=== PATIENT | female | born 1950 | race Caucasian/White ===

== ENCOUNTER → 2017-05-14 15:42 | Outpatient (CLI) | payer MEDICARE, BC ==
[2015-12-14 12:41] VITALS: BMI 26.2
[~2017-05-14 15:42] MED LIST: ALEVE220 MG PO; ASCORBIC ACID500 MG PO; CO Q-1030 MG PO; FISH OIL 1,0001 CA1 PO; HYDROCODON-ACE1 EAC7 PO; MIRALAX17 GM PO; MORPHINE IMMEDI15 MG PO; MS CONTIN60 MG PO; NEUPOGEN300 MCG/ML SC; PRINIVIL20 MG PO; PROBIOTIC1 EAC1 PO; REGLAN10 MG PO; VITAMIN D3400 UNI1 PO; XANAX0.5 MG PO; ZOFRAN8 MG PO; [UNRECOGNIZED DRUG - OTHER]; [UNRECOGNIZED DRUG - REMARK]
[2017-05-14 19:36] LABS: MCH 32.9 pg (26.0-34.0); MCHC 32.3 g/dL (31.0-37.0); MEAN PLATELET VOLUME 12.3 fL (7.4-10.4); RDW 19.4 % (11.5-14.5)
[2017-05-14 19:48] LABS: HEMATOCRIT 15.5 % (36.0-48.0); PLATELET COUNT 22 10x3/uL (130-400); RBC 1.52 10x6/uL (4.00-5.40); WBC 0.2 10x3/uL (4.8-10.8)
[2017-05-14 20:13] LABS: ALBUMIN 2.7 g/dL (3.4-5.0); ALKALINE PHOSPHATASE 116 U/L (46-116); ALT (SGPT) 47 U/L (10-68); CALC OSMOLALITY 259 mosm/kg (275-300); CALCIUM 7.3 mg/dL (8.5-10.1); CARBON DIOXIDE 24.5 mmol/L (21.0-32.0); CHLORIDE - SERUM 95 mmol/L (98-107); CREATININE - SERUM 0.5 mg/dL (0.6-1.3); GLUCOSE 137 mg/dL (74-106); POTASSIUM - SERUM 3.9 mmol/L (3.5-5.1); SODIUM 129 mmol/L (136-145); UREA NITROGEN 11 mg/dL (7-18); eGFR NON AFRICAN AMERICAN > 90 mL/min (90-120)
[2017-05-14 21:32] LABS: LYMPHOCYTES 47 % (15-50); NEUTROPHILS 53 % (40-80); PLATELET ESTIMATE DECREASED
== END | disposition home or self-care (01) ==
LOC: D.LABREF 15:42
PROVIDERS: Internal Medicine Hematology & Oncology
DX: C18.7 Malignant neoplasm of sigmoid colon (principal)

== ENCOUNTER 2017-05-15 00:50 | Inpatient (IN) | payer MEDICARE, BC ==
[2017-05-15] VITALS (12 sets, daily range): BP systolic 114–147; BP diastolic 67–82; Ht 162.6 cm; Wt 57.0 kg
[~2017-05-15] VITALS: Ht 162.6 cm; Wt 57.0 kg
[~2017-05-15 00:50] MED LIST changes: -ALEVE220 MG PO; -MIRALAX17 GM PO; -MORPHINE IMMEDI15 MG PO; -MS CONTIN60 MG PO; -NEUPOGEN300 MCG/ML SC; -REGLAN10 MG PO; -XANAX0.5 MG PO; -ZOFRAN8 MG PO
[2017-05-15] MEDS ORDERED: ZOFRAN8 MG PO (03:37)
[2017-05-15] MEDS ORDERED: PRINIVIL20 MG PO (03:38)
[2017-05-15] MEDS ORDERED: REGLAN10 MG PO (03:38)
[2017-05-15] MEDS ORDERED: MS CONTIN60 MG PO (03:39)
[2017-05-15] MEDS ORDERED: MORPHINE IMMEDI15 MG PO (03:39)
[2017-05-15] MEDS ORDERED: MIRALAX17 GM PO (03:40)
[2017-05-15] MEDS ORDERED: XANAX0.5 MG PO (03:41)
[2017-05-15] MEDS ORDERED: NEUPOGEN300 MCG/ML SC (03:42)
[2017-05-15] MEDS ORDERED: ALEVE220 MG PO (03:42)
[2017-05-15 09:00] LABS: INR 1.49 (0.85-1.17); PROTIME 17.5 SECONDS (11.6-15.0)
[2017-05-15 10:17] LABS: BASOPHILS 0 % (0-2); EOSINOPHILS 0 % (0-7); LYMPHOCYTES 23.3 % (15-50); MCH 32.3 pg (26.0-34.0); MCHC 33.7 g/dL (31.0-37.0); MEAN PLATELET VOLUME 9.6 fL (7.4-10.4); MONOCYTES 13.3 % (2-11); NEUTROPHILS 63.4 % (40-80); RDW 19.1 % (11.5-14.5)
[2017-05-15 10:32] LABS: HEMATOCRIT 25.8 % (36.0-48.0); HEMOGLOBIN 8.7 g/dL (12-16); MCV 95.9 fL (80.0-100.0); PLATELET COUNT 77 10x3/uL (130-400); RBC 2.69 10x6/uL (4.00-5.40); WBC 0.3 10x3/uL (4.8-10.8)
[2017-05-15 10:40] LABS: ALKALINE PHOSPHATASE 116 U/L (46-116); ALT (SGPT) 49 U/L (10-68); BILIRUBIN - TOTAL 3.25 mg/dL (0.2-1.3); CALC OSMOLALITY 267 mosm/kg (275-300); CARBON DIOXIDE 23.4 mmol/L (21.0-32.0); CHLORIDE - SERUM 99 mmol/L (98-107); CREATININE - SERUM 0.5 mg/dL (0.6-1.3); GLUCOSE 136 mg/dL (74-106); PROTEIN - SERUM 6.9 g/dL (6.4-8.2); SODIUM 132 mmol/L (136-145); UREA NITROGEN 14 mg/dL (7-18); eGFR NON AFRICAN AMERICAN > 90 mL/min (90-120)
[2017-05-16 03:00] VITALS: BP 117/69
[2017-05-16 04:03] LABS: BASOPHILS 0 % (0-2); EOSINOPHILS 0 % (0-7); HEMOGLOBIN 7.6 g/dL (12-16); LYMPHOCYTES 40.5 % (15-50); MCH 33.2 pg (26.0-34.0); MCHC 34.5 g/dL (31.0-37.0); MCV 96.1 fL (80.0-100.0); MEAN PLATELET VOLUME 9.1 fL (7.4-10.4); MONOCYTES 11.9 % (2-11); NEUTROPHILS 47.6 % (40-80); PLATELET COUNT 66 10x3/uL (130-400); RBC 2.29 10x6/uL (4.00-5.40); RDW 19.9 % (11.5-14.5)
[2017-05-16 04:34] LABS: ALKALINE PHOSPHATASE 87 U/L (46-116); ALT (SGPT) 37 U/L (10-68); BILIRUBIN - TOTAL 1.79 mg/dL (0.2-1.3); CALCIUM 7.5 mg/dL (8.5-10.1); CARBON DIOXIDE 24.6 mmol/L (21.0-32.0); CHLORIDE - SERUM 101 mmol/L (98-107); CREATININE - SERUM 0.5 mg/dL (0.6-1.3); GLUCOSE 131 mg/dL (74-106); PROTEIN - SERUM 5.5 g/dL (6.4-8.2); SODIUM 134 mmol/L (136-145); eGFR NON AFRICAN AMERICAN > 90 mL/min (90-120)
[2017-05-16 04:51] LABS: WBC 0.4 10x3/uL (4.8-10.8)
[2017-05-16 04:53] LABS: ALBUMIN 2.2 g/dL (3.4-5.0); CALC OSMOLALITY 268 mosm/kg (275-300); UREA NITROGEN 10 mg/dL (7-18)
[2017-05-16 07:00] VITALS: BP 115/81
[2017-05-16 11:00] VITALS: BP 127/79
[2017-05-16 15:00] VITALS: BP 127/76
[2017-05-16 19:00] VITALS: BP 133/87
[2017-05-16 22:19] VITALS: BP 116/61
[2017-05-17 04:40] VITALS: BP 137/61
[2017-05-17 04:45] LABS: BASOPHILS 0 % (0-2); EOSINOPHILS 1.3 % (0-7); HEMATOCRIT 25.2 % (36.0-48.0); HEMOGLOBIN 8.5 g/dL (12-16); LYMPHOCYTES 29.3 % (15-50); MCH 31.5 pg (26.0-34.0); MCHC 33.7 g/dL (31.0-37.0); MEAN PLATELET VOLUME 9.1 fL (7.4-10.4); MONOCYTES 17.3 % (2-11); NEUTROPHILS 44.1 % (40-80); RDW 20.8 % (11.5-14.5)
[2017-05-17 05:09] LABS: MCV 93.3 fL (80.0-100.0)
[2017-05-17 05:10] LABS: PLATELET COUNT 49 10x3/uL (130-400); WBC 0.8 10x3/uL (4.8-10.8)
[2017-05-17 05:16] LABS: ALBUMIN 2.1 g/dL (3.4-5.0); ALKALINE PHOSPHATASE 74 U/L (46-116); ALT (SGPT) 30 U/L (10-68); BILIRUBIN - TOTAL 1.46 mg/dL (0.2-1.3); CALC OSMOLALITY 268 mosm/kg (275-300); CARBON DIOXIDE 23.5 mmol/L (21.0-32.0); CHLORIDE - SERUM 105 mmol/L (98-107); CREATININE - SERUM 0.5 mg/dL (0.6-1.3); GLUCOSE 108 mg/dL (74-106); POTASSIUM - SERUM 4.1 mmol/L (3.5-5.1); PROTEIN - SERUM 5.1 g/dL (6.4-8.2); SODIUM 135 mmol/L (136-145); UREA NITROGEN 8 mg/dL (7-18); eGFR NON AFRICAN AMERICAN > 90 mL/min (90-120)
[2017-05-17 09:58] VITALS: BP 117/67
[2017-05-17 12:49] VITALS: BP 119/70
[2017-05-17 15:57] VITALS: BP 133/74
[2017-05-17 21:58] VITALS: BP 155/84
[2017-05-18 00:11] VITALS: BP 137/71
[2017-05-18 04:59] LABS: BASOPHILS 0 % (0-2); EOSINOPHILS 0 % (0-7); HEMATOCRIT 27.1 % (36.0-48.0); HEMOGLOBIN 9.1 g/dL (12-16); IMMATURE GRANULOCYTES 10.5 % (0-5); LYMPHOCYTES 23.8 % (15-50); MCH 31.7 pg (26.0-34.0); MCHC 33.6 g/dL (31.0-37.0); MCV 94.4 fL (80.0-100.0); MEAN PLATELET VOLUME 9.4 fL (7.4-10.4); MONOCYTES 15.4 % (2-11); NEUTROPHILS 50.3 % (40-80); RBC 2.87 10x6/uL (4.00-5.40); RDW 20.3 % (11.5-14.5)
[2017-05-18 05:04] LABS: PLATELET COUNT 45 10x3/uL (130-400); WBC 1.4 10x3/uL (4.8-10.8)
[2017-05-18 05:16] VITALS: BP 129/75
[2017-05-18 05:53] LABS: ALBUMIN 2.1 g/dL (3.4-5.0); ALKALINE PHOSPHATASE 71 U/L (46-116); ALT (SGPT) 24 U/L (10-68); CARBON DIOXIDE 25.3 mmol/L (21.0-32.0); CHLORIDE - SERUM 102 mmol/L (98-107); CREATININE - SERUM 0.4 mg/dL (0.6-1.3); GLUCOSE 99 mg/dL (74-106); PROTEIN - SERUM 4.6 g/dL (6.4-8.2); SODIUM 133 mmol/L (136-145); eGFR NON AFRICAN AMERICAN > 90 mL/min (90-120)
[2017-05-18 05:55] LABS: CALC OSMOLALITY 262 mosm/kg (275-300); POTASSIUM - SERUM 3.4 mmol/L (3.5-5.1); UREA NITROGEN 5 mg/dL (7-18)
[2017-05-18 05:58] LABS: CALCIUM 6.8 mg/dL (8.5-10.1)
[2017-05-18 08:39] VITALS: BP 122/76
[2017-05-18 13:14] VITALS: BP 101/74
[2017-05-18 16:48] VITALS: BP 135/78
[2017-05-18 21:35] VITALS: BP 154/83
[2017-05-19 00:45] VITALS: BP 144/77
[2017-05-19 04:54] VITALS: BP 150/76
[2017-05-19 06:29] LABS: BASOPHILS 0 % (0-2); EOSINOPHILS 0.3 % (0-7); HEMATOCRIT 26.1 % (36.0-48.0); HEMOGLOBIN 8.8 g/dL (12-16); IMMATURE GRANULOCYTES 1.6 % (0-5); LYMPHOCYTES 11.4 % (15-50); MCH 31.9 pg (26.0-34.0); MCHC 33.7 g/dL (31.0-37.0); MCV 94.6 fL (80.0-100.0); NEUTROPHILS 72.7 % (40-80); RBC 2.76 10x6/uL (4.00-5.40)
[2017-05-19 06:34] LABS: WBC 3.1 10x3/uL (4.8-10.8)
[2017-05-19 06:35] LABS: PLATELET COUNT 40 10x3/uL (130-400)
[2017-05-19 06:53] LABS: ALBUMIN 2.1 g/dL (3.4-5.0); ALKALINE PHOSPHATASE 68 U/L (46-116); ALT (SGPT) 21 U/L (10-68); BILIRUBIN - TOTAL 0.79 mg/dL (0.2-1.3); CALC OSMOLALITY 266 mosm/kg (275-300); CALCIUM 7.1 mg/dL (8.5-10.1); CARBON DIOXIDE 25.3 mmol/L (21.0-32.0); CHLORIDE - SERUM 103 mmol/L (98-107); CREATININE - SERUM 0.5 mg/dL (0.6-1.3); GLUCOSE 105 mg/dL (74-106); POTASSIUM - SERUM 3.1 mmol/L (3.5-5.1); PROTEIN - SERUM 5.2 g/dL (6.4-8.2); SODIUM 135 mmol/L (136-145); UREA NITROGEN 4 mg/dL (7-18); eGFR NON AFRICAN AMERICAN > 90 mL/min (90-120)
[2017-05-19 08:10] VITALS: BP 132/76
[2017-05-19 11:31] VITALS: BP 137/76
[2017-05-19 15:29] VITALS: BP 130/73
[2017-05-19 17:19] LABS: APPEARANCE CLEAR (CLEAR); BILIRUBIN NEGATIVE (NEGATIVE); COLOR YELLOW (YELLOW); GLUCOSE NEGATIVE (NEGATIVE); KETONE NEGATIVE (NEGATIVE); NITRITE NEGATIVE (NEGATIVE); PROTEIN NEGATIVE (NEGATIVE); SPECIFIC GRAVITY 1.005 (1.005-1.020); UROBILINOGEN NORMAL (NORMAL)
[2017-05-19 17:23] LABS: BACTERIA FEW /hpf (NONE SEEN); EPITHELIAL CELLS OCC /hpf (0-5); RED CELLS - URINE 0-5 /hpf (0-5); WHITE CELLS - URINE 0-5 /hpf (0-5)
[2017-05-19 20:00] VITALS: BP 148/84
[2017-05-20 01:49] VITALS: BP 138/75
[2017-05-20 04:46] VITALS: BP 134/90
[2017-05-20 08:13] LABS: BASOPHILS 0.2 % (0-2); EOSINOPHILS 0 % (0-7); HEMATOCRIT 25.8 % (36.0-48.0); HEMOGLOBIN 8.7 g/dL (12-16); IMMATURE GRANULOCYTES 2.6 % (0-5); LYMPHOCYTES 6.6 % (15-50); MCH 32.5 pg (26.0-34.0); MCHC 33.7 g/dL (31.0-37.0); MCV 96.3 fL (80.0-100.0); MEAN PLATELET VOLUME 10.5 fL (7.4-10.4); MONOCYTES 11.7 % (2-11); NEUTROPHILS 78.9 % (40-80); RBC 2.68 10x6/uL (4.00-5.40); RDW 20.2 % (11.5-14.5)
[2017-05-20 08:20] LABS: PLATELET COUNT 34 10x3/uL (130-400)
[2017-05-20 08:26] LABS: ALBUMIN 2.2 g/dL (3.4-5.0); ALKALINE PHOSPHATASE 73 U/L (46-116); BILIRUBIN - TOTAL 0.68 mg/dL (0.2-1.3); CALC OSMOLALITY 267 mosm/kg (275-300); CALCIUM 7.1 mg/dL (8.5-10.1); CARBON DIOXIDE 24.6 mmol/L (21.0-32.0); CHLORIDE - SERUM 104 mmol/L (98-107); CREATININE - SERUM 0.4 mg/dL (0.6-1.3); GLUCOSE 115 mg/dL (74-106); POTASSIUM - SERUM 3.5 mmol/L (3.5-5.1); PROTEIN - SERUM 4.9 g/dL (6.4-8.2); SODIUM 135 mmol/L (136-145); UREA NITROGEN 3 mg/dL (7-18); eGFR NON AFRICAN AMERICAN > 90 mL/min (90-120)
[2017-05-20 08:27] LABS: ALT (SGPT) 15 U/L (10-68)
[2017-05-20 09:10] VITALS: BP 133/80
[2017-05-20 11:34] VITALS: BP 98/56
[2017-05-20 22:00] VITALS: BP 141/82
[2017-05-20 23:31] VITALS: BP 148/80
[2017-05-21 05:09] LABS: BASOPHILS 0.1 % (0-2); EOSINOPHILS 0.5 % (0-7); HEMATOCRIT 28.1 % (36.0-48.0); HEMOGLOBIN 9.2 g/dL (12-16); IMMATURE GRANULOCYTES 1.3 % (0-5); LYMPHOCYTES 6.4 % (15-50); MCH 31.6 pg (26.0-34.0); MCHC 32.7 g/dL (31.0-37.0); MCV 96.6 fL (80.0-100.0); MONOCYTES 8.7 % (2-11); RBC 2.91 10x6/uL (4.00-5.40); RDW 20.5 % (11.5-14.5)
[2017-05-21 05:11] LABS: ALBUMIN 2.5 g/dL (3.4-5.0); ALKALINE PHOSPHATASE 88 U/L (46-116); ALT (SGPT) 18 U/L (10-68); BILIRUBIN - TOTAL 0.84 mg/dL (0.2-1.3); CALCIUM 7.8 mg/dL (8.5-10.1); CARBON DIOXIDE 28.4 mmol/L (21.0-32.0); CHLORIDE - SERUM 100 mmol/L (98-107); GLUCOSE 106 mg/dL (74-106); PLATELET COUNT 38 10x3/uL (130-400); POTASSIUM - SERUM 3.1 mmol/L (3.5-5.1); PROTEIN - SERUM 6.1 g/dL (6.4-8.2); SODIUM 135 mmol/L (136-145); WBC 7.5 10x3/uL (4.8-10.8)
[2017-05-21 05:13] LABS: CALC OSMOLALITY 266 mosm/kg (275-300); CREATININE - SERUM 0.6 mg/dL (0.6-1.3); UREA NITROGEN 4 mg/dL (7-18); eGFR NON AFRICAN AMERICAN > 90 mL/min (90-120)
[2017-05-21 05:55] VITALS: BP 135/81
[2017-05-21 06:58] LABS: MAGNESIUM - SERUM 1.5 mg/dL (1.8-2.4); PHOSPHOROUS 3.2 mg/dL (2.5-4.9)
[2017-05-21 08:04] VITALS: BP 113/73
[2017-05-21 12:02] VITALS: BP 98/60
[2017-05-21 15:33] VITALS: BP 105/64
[2017-05-21 21:52] VITALS: BP 145/78
[2017-05-22 00:48] VITALS: BP 127/77
[2017-05-22 05:33] VITALS: BP 129/74
[2017-05-22 06:29] LABS: CALC OSMOLALITY 265 mosm/kg (275-300); CALCIUM 7.4 mg/dL (8.5-10.1); CARBON DIOXIDE 26.8 mmol/L (21.0-32.0); CHLORIDE - SERUM 102 mmol/L (98-107); CREATININE - SERUM 0.5 mg/dL (0.6-1.3); GLUCOSE 97 mg/dL (74-106); POTASSIUM - SERUM 3.9 mmol/L (3.5-5.1); SODIUM 134 mmol/L (136-145); eGFR NON AFRICAN AMERICAN > 90 mL/min (90-120)
[2017-05-22 06:32] LABS: UREA NITROGEN 6 mg/dL (7-18)
[2017-05-22 06:53] LABS: HEMATOCRIT 26.2 % (36.0-48.0); LYMPHOCYTES 5.8 % (15-50); MCH 33.3 pg (26.0-34.0); MCHC 34.4 g/dL (31.0-37.0); MEAN PLATELET VOLUME 10.2 fL (7.4-10.4); NEUTROPHILS 84.9 % (40-80); RDW 20.6 % (11.5-14.5); WBC 8.1 10x3/uL (4.8-10.8)
[2017-05-22 06:55] LABS: PLATELET COUNT 23 10x3/uL (130-400)
[2017-05-22 07:54] VITALS: BP 117/74
[2017-05-22 12:26] VITALS: BP 115/67
[2017-05-22 16:14] VITALS: BP 112/66
[2017-05-22 21:28] VITALS: BP 146/76
[2017-05-23 00:56] VITALS: BP 144/75
[2017-05-23 04:36] VITALS: BP 118/71
[2017-05-23 06:04] LABS: BASOPHILS 0.1 % (0-2); EOSINOPHILS 0 % (0-7); HEMATOCRIT 25.9 % (36.0-48.0); HEMOGLOBIN 8.3 g/dL (12-16); MCH 31.6 pg (26.0-34.0); MCV 98.5 fL (80.0-100.0); MEAN PLATELET VOLUME 11.3 fL (7.4-10.4); MONOCYTES 8.4 % (2-11); NEUTROPHILS 83.5 % (40-80); RBC 2.63 10x6/uL (4.00-5.40); RDW 20.7 % (11.5-14.5)
[2017-05-23 06:20] LABS: PLATELET COUNT 31 10x3/uL (130-400)
[2017-05-23 06:37] LABS: CALC OSMOLALITY 267 mosm/kg (275-300); CALCIUM 7.3 mg/dL (8.5-10.1); CARBON DIOXIDE 25.5 mmol/L (21.0-32.0); CHLORIDE - SERUM 102 mmol/L (98-107); CREATININE - SERUM 0.5 mg/dL (0.6-1.3); GLUCOSE 95 mg/dL (74-106); POTASSIUM - SERUM 3.8 mmol/L (3.5-5.1); SODIUM 135 mmol/L (136-145); UREA NITROGEN 6 mg/dL (7-18); eGFR NON AFRICAN AMERICAN > 90 mL/min (90-120)
[2017-05-23 08:06] VITALS: BP 166/87
[2017-05-23 12:16] VITALS: BP 122/77
[2017-05-23 15:58] VITALS: BP 129/72
== END 2017-05-23 19:42 | disposition hospice, inpatient (51) | DRG 808 ==
LOC: D.ICU 00:50 → D.MS 03:32 → D.ICU 03:32 → D.MS 05-16 20:10
PROVIDERS: Internal Medicine Hematology & Oncology; Internal Medicine Nephrology
DX: D61.810 Antineoplastic chemotherapy induced pancytopenia (principal); J18.9 Pneumonia, unspecified organism; C19 Malignant neoplasm of rectosigmoid junction; C79.51 Secondary malignant neoplasm of bone; E87.1 Hypo-osmolality and hyponatremia; C78.7 Secondary malignant neoplasm of liver and intrahepatic bile duct; K92.2 Gastrointestinal hemorrhage, unspecified; K64.9 Unspecified hemorrhoids; D62 Acute posthemorrhagic anemia; K59.00 Constipation, unspecified; I10 Essential (primary) hypertension; F41.8 Other specified anxiety disorders

== ENCOUNTER 2017-05-23 19:42 | Inpatient (IN) | payer OTHER ==
[~2017-05-23] VITALS: Ht 162.6 cm; Wt 56.7 kg
[~2017-05-23 19:42] MED LIST changes: +ALEVE220 MG PO; +MIRALAX17 GM PO; +MORPHINE IMMEDI15 MG PO; +MS CONTIN60 MG PO; +NEUPOGEN300 MCG/ML SC; +REGLAN10 MG PO; +XANAX0.5 MG PO; +ZOFRAN8 MG PO
[2017-05-23 20:15] VITALS: Ht 162.6 cm; Wt 56.7 kg
[2017-05-24] VITALS: BP 164/79
[2017-05-24 07:48] VITALS: BP 123/74
[2017-05-24 21:43] VITALS: BP 130/75
[2017-05-25 08:14] VITALS: BP 123/66
[2017-05-25 22:10] VITALS: BP 170/87
[2017-05-26 00:14] VITALS: BP 154/91
[2017-05-26 06:33] VITALS: BP 137/77
[2017-05-26 09:19] VITALS: BP 140/76
[2017-05-26 12:45] VITALS: BP 133/76
[2017-05-26] MEDS ORDERED: DILAUDID8 MG PO (15:01)
[2017-05-26] MEDS ORDERED: DURAGESIC1 PATCH .3 TRANSDERM (15:04)
[2017-05-26] MEDS ORDERED: ATIVAN2 MG PO (15:04)
[2017-05-26] MEDS ORDERED: CELEXA20 MG PO (15:05)
[2017-05-26] MEDS ORDERED: NYSTATIN ORAL SU5 ML PO (15:07)
[2017-05-26] MEDS ORDERED: PREDNISONE20 MG PO (15:08)
[2017-05-26] MEDS ORDERED: SENNA LAXATIVE8.6 MG PO (15:09)
== END 2017-05-26 16:59 | disposition home health service (06) | DRG 951 ==
LOC: D.MS 19:42
DX: Z51.5 Encounter for palliative care (principal)